=== PATIENT | male | born 1995 | race African-American/Black ===

== ENCOUNTER 2018-05-23 13:59 | Emergency (ER) | payer OTHER ==
[2018-05-23 14:05] VITALS: BP 123/80; PULSE 69; TEMP 98.6; BMI 24.4
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
== END 2018-05-23 15:09 | disposition home or self-care (01) ==
LOC: JERFT 13:59
DX: S16.1XXA Strain of muscle, fascia and tendon at neck level, initial encounter (principal); V43.62XA Car passenger injured in collision with other type car in traffic accident, initial encounter; Y93.89 Activity, other specified; Y92.410 Unspecified street and highway as the place of occurrence of the external cause; S39.012A Strain of muscle, fascia and tendon of lower back, initial encounter
CPT/HCPCS: 99281-25

== ENCOUNTER 2021-04-03 19:03 | Emergency (ER) | payer OTHER ==
[2021-04-03 19:29] VITALS: BP 127/78; PULSE 67; TEMP 98.9; BMI 23.0
[2021-04-03] MEDS ORDERED: METHOCARBAMOL 500 MG TABLET PO ONE (21:09)
[2021-04-03] MEDS ORDERED: METHOCARBAMOL 500 MG TABLET ONE (21:22)
== END 2021-04-04 01:01 | disposition home or self-care (01) ==
LOC: JER 19:03
DX: M54.5 Low back pain (principal); M54.2 Cervicalgia; S46.811A Strain of other muscles, fascia and tendons at shoulder and upper arm level, right arm, initial encounter
CPT/HCPCS: 70450-TC; 72125-TC; 99284-25

== ENCOUNTER 2024-03-30 00:21 | Emergency (ER) | payer SELFPAY ==
[2024-03-30 00:44] VITALS: BP 143/92; PULSE 71; RESP 18; BMI 19.6
[2024-03-30] MEDS ORDERED: KETOROLAC TROMETHAMINE 30 MG/1 ML VIAL ONE (01:02)
[2024-03-30] MEDS: SODIUM CHLORIDE 1,000 ML IV STA (01:07)
[2024-03-30] MEDS: KETOROLAC TROMETHAMINE 30 MG/1 ML VIAL IVPUSH ONE (01:08)
[2024-03-30 01:09] LABS: BASO % 0.6 % (0-2.0); EOS % 0.9 % (0-4.5); HEMATOCRIT 45.4 % (35.4-49); HEMOGLOBIN 15.2 GM/dL (11.7-16.9); LYMPH % 27.5 % (8-40); MCH 26.3 pg (25.7-33.7); MCHC 33.6 g/dl (32.0-35.9); MEAN CELL VOLUME 78.2 fl (80-96); MEAN PLT VOLUME 8.1 fl (7.5-11.1); MONO % 9.3 % (3.8-10.2); NEUT % 61.7 % (42.8-82.8); PLATELET COUNT 227 10^3/uL (134-434); RDW 15.9 % (11.9-15.9); WHITE BLOOD COUNT 4.8 K/mm3 (4.0-10.0)
[2024-03-30 01:26] LABS: POTASSIUM 3.6 mmol/L (3.5-5.1)
[2024-03-30 01:27] LABS: CALCIUM 9.2 mg/dL (8.5-10.1)
[2024-03-30 01:28] LABS: ALBUMIN 4.3 g/dl (3.4-5.0); BLOOD UREA NITROGEN 9.1 mg/dL (7-18)
[2024-03-30 01:31] LABS: CREATININE 0.9 mg/dL (0.55-1.3)
[2024-03-30 01:33] LABS: BILIRUBIN,TOTAL 0.5 mg/dL (0.2-1); TOT PROT 8.3 g/dl (6.4-8.2)
[2024-03-30 02:58] VITALS: TEMP 98.7
== END 2024-03-30 03:11 | disposition home or self-care (01) ==
LOC: JER 00:21
PROC: 3E0333Z Introduction of Anti-inflammatory into Peripheral Vein, Percutaneous Approach (ICD-10-PCS; principal; 2024-03-30)
PROC: 3E0337Z Introduction of Electrolytic and Water Balance Substance into Peripheral Vein, Percutaneous Approach (ICD-10-PCS; 2024-03-30)
DX: R50.9 Fever, unspecified (principal); R05.9 Cough, unspecified; J02.9 Acute pharyngitis, unspecified; Z20.822 Contact with and (suspected) exposure to COVID-19
CPT/HCPCS: 0241U-QW; 36415; 71046-TC-FY; 80053; 85025; 99284-25